=== PATIENT | male | born 1945 | race Hispanic/Latino ===

== ENCOUNTER 2024-08-20 11:56 | Inpatient (IN) | payer MEDICARE ==
[2024-08-20] MEDS ORDERED: Iopamidol-370 76% 500 ML MDV (1 ML CHARGE) ONE (12:23)
[2024-08-20 12:26] LABS: Actual Bicarbonate (HCO3v) 24.8 mEq/L (22-28); Calcium, Ionized (venous) 1.03 mmol/L (1.16-1.32); Chloride (VBG) 91 mmol/L (98-106); Hematocrit-VBG 34 % (42.0-52.0); Hemoglobin (Hb) 11.6 g/dL (12.6-17.4); Potassium (VBG) 3.77 mmol/L (3.70-5.30); Sodium 124 mmol/L (133-146); pH (venous) 7.399 (7.32-7.43)
[2024-08-20 12:31] LABS: #Basophils Less than 0.03 10x3/uL (0.0-0.2); #Eosinophils Less than 0.03 10x3/uL (0.0-0.7); %Basophils 0.1 % (0.0-1.0); %Eosinophils 0.1 % (0.0-10.0); %Lymphocytes 2.1 % (21.0-51.0); %Monocytes 2.1 % (0.0-10.0); %Neutrophils 94.7 % (42.0-75.0); Hematocrit 29.6 % (42.0-52.0); Hemoglobin 10.4 g/dL (14.0-18.0); Mean Corpuscular HGB CONC 35.1 g/dL (32.0-36.0); Mean Corpuscular Hemoglobin 30.1 pg (27.0-31.0); Mean Corpuscular Volume 85.8 fL (78.0-98.0); Mean Platelet Volume 8.4 fL (7.4-10.4); Platelet Count 379 10x3/uL (130-400); RBC Distribution Width 13.9 % (11.5-14.5); Red Blood Cell (RBC) Count 3.45 mill/uL (4.70-6.10)
[2024-08-20 12:50] LABS: ALT (SGPT) 26 U/L (8-55); AST (SGOT) 34 U/L (5-34); Albumin 2.3 g/dL (3.4-4.8); Alkaline Phosphatase 197 U/L (40-110); Anion Gap 15 mmol/L (10-20); BUN (Urea Nitrogen) 8 mg/dL (8.4-25.7); Bilirubin, Total 0.7 mg/dL (0.2-1.2); Calc. Creatinine Clearance 0 mL/min (70-130); Calcium 7.7 mg/dL (7.8-10.44); Carbon Dioxide 19 mmol/L (23-31); Chloride 93 mmol/L (98-107); Estimated GFR 99; Glucose 113 mg/dL (83-110); Potassium 3.8 mmol/L (3.5-5.1); Protein, Total 6.3 g/dL (5.8-8.1); Sodium 123 mmol/L (136-145)
[2024-08-20 13:14] LABS: Bacteria/HPF None Seen HPF (None Seen); Bilirubin Negative (Negative); Blood, Urine 1+ (Negative); CAUTI Indications for Culture Alt mental st,lethar; Clarity Clear (Clear); Glucose, Urine (Dipstick) Normal (Negative); Ketone, Urine Trace mg/dL (Negative); Leukocyte Negative Leu/uL (Negative); Nitrite Negative (Negative); Protein, Urine (Dipstick) Negative (Neg-Trace); RBC/HPF 0-3 HPF (0-3); Specific Gravity, Urine 1.008 (1.002-1.036); Squamous Epithelial None Seen HPF (0-3); Urobilinogen Normal mg/dL (Less than 2); WBC/HPF 0-3 HPF (0-3)
[2024-08-20 13:16] LABS: Urine Culture Reflex No No
[2024-08-20 13:26] LABS: Troponin I 0.138 ng/mL (< 0.028)
[2024-08-20] MEDS ORDERED: Sodium Chloride 0.9% 100 ML ONE (13:26)
[2024-08-20] MEDS ORDERED: Cefepime 2 GM VIAL ONE (13:26)
[2024-08-20 15:35] LABS: Lactic Acid 2.18 mmol/L (0.5-2.2)
[2024-08-20] MEDS ORDERED: Aspirin 300 MG Suppository ONE (15:48)
[2024-08-20] MEDS ORDERED: Ondansetron PF 4 MG/2 ML Vial IVP PRN (15:51)
[2024-08-20] MEDS: Sodium Chloride 0.9% 1,000 ML IV SCH (17:35)
[2024-08-20 18:37] VITALS: BMI 21.7
[2024-08-20] MEDS: Vancomycin (BATCH) 1.75 GM in Premix 1 BAG IVPB SCH (18:37)
[2024-08-20] MEDS: Famotidine/PF 20 mg/2ml Vial SLOW IVP SCH (22:06)
[2024-08-20] MEDS: Cefepime 2 GM in Sodium Chloride 0.9% 100 ML IVPB SCH (22:06)
[2024-08-20] MEDS: Ketorolac Tromethamine 30 MG (1 mL) VIAL IVP SCH (22:35)
[2024-08-21] MEDS: VANCOMYCIN 1.25 GM/250 ML BAG 1.25 GM in Premix 1 BAG IVPB SCH (00:30)
[2024-08-21 05:46] LABS: #Basophils 0.03 10x3/uL (0.0-0.2); #Eosinophils Less than 0.03 10x3/uL (0.0-0.7); %Basophils 0.3 % (0.0-1.0); %Eosinophils 0.1 % (0.0-10.0); %Lymphocytes 5.6 % (21.0-51.0); %Monocytes 2.9 % (0.0-10.0); %Neutrophils 90.4 % (42.0-75.0); Hematocrit 30.8 % (42.0-52.0); Hemoglobin 10.5 g/dL (14.0-18.0); Mean Corpuscular HGB CONC 34.1 g/dL (32.0-36.0); Mean Corpuscular Hemoglobin 29.3 pg (27.0-31.0); Mean Platelet Volume 8.4 fL (7.4-10.4); Platelet Count 330 10x3/uL (130-400); RBC Distribution Width 13.9 % (11.5-14.5); Red Blood Cell (RBC) Count 3.58 mill/uL (4.70-6.10)
[2024-08-21 06:28] LABS: Anion Gap 16 mmol/L (10-20); BUN (Urea Nitrogen) 11 mg/dL (8.4-25.7); Calc. Creatinine Clearance 91 mL/min (70-130); Calcium 7.9 mg/dL (7.8-10.44); Carbon Dioxide 19 mmol/L (23-31); Chloride 95 mmol/L (98-107); Estimated GFR 95; Glucose 82 mg/dL (83-110); Potassium 3.5 mmol/L (3.5-5.1); Sodium 126 mmol/L (136-145)
[2024-08-21 06:39] LABS: Vancomycin, Random 16.2 ug/mL (See Comment)
[2024-08-21 07:31] LABS: Legionella Urinary Ag Negative (Negative); Strep pneumo Urine Ag NEGATIVE (NEGATIVE)
[2024-08-21] MEDS: Enoxaparin 40 MG (0.4 mL) SYRINGE SC SCH (09:31)
[2024-08-21 09:48] LABS: Troponin I 1.488 ng/mL (< 0.028)
[2024-08-21] MEDS: Enoxaparin 30 MG (0.3 mL) SYRINGE SC SCH (11:10)
[2024-08-21 13:07] VITALS: BMI 21.7
[2024-08-21 13:43] LABS: Critical Call Chem Troponin I RESULT DECREASING; Troponin I 1.334 ng/mL (< 0.028)
[2024-08-21 16:18] LABS: Anion Gap 15 mmol/L (10-20); BUN (Urea Nitrogen) 14 mg/dL (8.4-25.7); Calc. Creatinine Clearance 99 mL/min (70-130); Calcium 7.9 mg/dL (7.8-10.44); Carbon Dioxide 20 mmol/L (23-31); Chloride 96 mmol/L (98-107); Estimated GFR 97; Glucose 80 mg/dL (83-110); Potassium 3.4 mmol/L (3.5-5.1); Sodium 128 mmol/L (136-145)
[2024-08-21] MEDS ORDERED: Enoxaparin 80 MG (0.8 mL) SYRINGE SC SCH (21:00)
[2024-08-21] MEDS: Ketorolac Tromethamine 30 MG (1 mL) VIAL IVP SCH (23:43)
[2024-08-22] MEDS: HYDROcodone/Acetaminophen 10/325 mg Tablet PO SCH (01:31)
[2024-08-22 05:01] LABS: ALT (SGPT) 27 U/L (8-55); AST (SGOT) 46 U/L (5-34); Alkaline Phosphatase 166 U/L (40-110); Anion Gap 15 mmol/L (10-20); BUN (Urea Nitrogen) 16 mg/dL (8.4-25.7); Bilirubin, Total 0.6 mg/dL (0.2-1.2); Calc. Creatinine Clearance 91 mL/min (70-130); Carbon Dioxide 19 mmol/L (23-31); Chloride 98 mmol/L (98-107); Estimated GFR 95; Globulin 3.9 g/dL (2.4-3.5); Glucose 81 mg/dL (83-110); Potassium 3.2 mmol/L (3.5-5.1); Protein, Total 5.9 g/dL (5.8-8.1); Sodium 129 mmol/L (136-145)
[2024-08-22 07:01] LABS: #Basophils 0.03 10x3/uL (0.0-0.2); #Eosinophils Less than 0.03 10x3/uL (0.0-0.7); %Basophils 0.2 % (0.0-1.0); %Eosinophils 0.1 % (0.0-10.0); %Lymphocytes 7.5 % (21.0-51.0); %Monocytes 7.3 % (0.0-10.0); %Neutrophils 83.9 % (42.0-75.0); Hematocrit 31.9 % (42.0-52.0); Hemoglobin 10.9 g/dL (14.0-18.0); Mean Corpuscular HGB CONC 34.2 g/dL (32.0-36.0); Mean Corpuscular Hemoglobin 29.4 pg (27.0-31.0); Platelet Count 297 10x3/uL (130-400); RBC Distribution Width 14.4 % (11.5-14.5); Red Blood Cell (RBC) Count 3.71 mill/uL (4.70-6.10)
[2024-08-22] MEDS ORDERED: Electrolyte Replacement Protocol 1 EACH FS SCH (07:30)
[2024-08-22] MEDS ORDERED: Electrolyte Replacement Protocol FS PRN (07:30)
[2024-08-22] MEDS: Aspirin 325 MG TAB PO SCH (10:05)
[2024-08-22] MEDS: Potassium Chloride 20 MEQ in Premix 1 BAG IVPB SCH (10:22)
[2024-08-22] MEDS: Enoxaparin 40 MG (0.4 mL) SYRINGE SC SCH (10:23)
[2024-08-22] MEDS: Morphine 2 MG/ML VIAL SLOW IVP PRN (12:17)
[2024-08-22] MEDS ORDERED: Magnevist 469MG/ML 20 ML VIAL ONE (14:12)
[2024-08-22] MEDS: Vancomycin (BATCH) 1.5 GM in Premix 1 BAG IVPB SCH (15:17)
[2024-08-22 16:05] LABS: Potassium 3.4 mmol/L (3.5-5.1)
[2024-08-23] MEDS: Vancomycin (BATCH) 1.5 GM in Premix 1 BAG IVPB SCH (01:04)
[2024-08-23 05:33] LABS: #Basophils Less than 0.03 10x3/uL (0.0-0.2); #Eosinophils Less than 0.03 10x3/uL (0.0-0.7); %Basophils 0.2 % (0.0-1.0); %Eosinophils 0.2 % (0.0-10.0); %Lymphocytes 7.3 % (21.0-51.0); %Monocytes 5.3 % (0.0-10.0); %Neutrophils 86.2 % (42.0-75.0); Hemoglobin 9.8 g/dL (14.0-18.0); Mean Corpuscular Hemoglobin 29.5 pg (27.0-31.0); Mean Corpuscular Volume 84.3 fL (78.0-98.0); Platelet Count 335 10x3/uL (130-400); RBC Distribution Width 14.6 % (11.5-14.5); Red Blood Cell (RBC) Count 3.32 mill/uL (4.70-6.10)
[2024-08-23 06:49] LABS: ALT (SGPT) 29 U/L (8-55); AST (SGOT) 44 U/L (5-34); Albumin 1.9 g/dL (3.4-4.8); Anion Gap 15 mmol/L (10-20); BUN (Urea Nitrogen) 15 mg/dL (8.4-25.7); Bilirubin, Total 0.6 mg/dL (0.2-1.2); Calc. Creatinine Clearance 99 mL/min (70-130); Calcium 7.9 mg/dL (7.8-10.44); Carbon Dioxide 18 mmol/L (23-31); Chloride 100 mmol/L (98-107); Estimated GFR 97; Globulin 3.9 g/dL (2.4-3.5); Glucose 96 mg/dL (83-110); Potassium 3.5 mmol/L (3.5-5.1); Protein, Total 5.8 g/dL (5.8-8.1); Sodium 129 mmol/L (136-145)
[2024-08-23 06:57] LABS: Vancomycin, Random 29.6 ug/mL (See Comment)
[2024-08-23 07:28] LABS: Alkaline Phosphatase 173 U/L (40-110)
[2024-08-23 07:59] VITALS: BP 144/67; TEMP 98.3
[2024-08-23] MEDS: Potassium Chloride 20 MEQ TAB PO SCH (09:38)
[2024-08-23] MEDS: Vancomycin 1.5 GRAM/300 ML BAG 1.5 GM in Premix 1 BAG IVPB SCH (11:42)
[2024-08-23] MEDS ORDERED: Vancomycin (BATCH) 1.5 GM in Premix 1 BAG IVPB SCH (23:59)
== END 2024-08-23 12:00 | disposition short-term general hospital (02) | DRG 871 ==
LOC: ERS 11:56 → 2NO 15:21
PROVIDERS: ADMIT Internal Medicine; ATTEND Internal Medicine
DX: A41.02 Sepsis due to Methicillin resistant Staphylococcus aureus (principal); G93.41 Metabolic encephalopathy; I21.4 Non-ST elevation (NSTEMI) myocardial infarction; J18.9 Pneumonia, unspecified organism; E87.1 Hypo-osmolality and hyponatremia; M19.90 Unspecified osteoarthritis, unspecified site; Z79.899 Other long term (current) drug therapy; Z98.890 Other specified postprocedural states; Z79.82 Long term (current) use of aspirin
CPT/HCPCS: 36415; 70450; 71045; 72132; 72158; 80048; 80053; 80202; 81001; 82805; 83605; 83930; 83935; 84300; 84484; 85025; 87040; 87077; 87081; 87086; 87147; 87149; 87186; 87449; 87899; 93005; 93306; 96361; 96374; 96375; 97139; J0692; J1650; J1885; J2272; J3370; J3480; J3490; J7030; Q9967